=== PATIENT | female | born 1965 | race African-American/Black ===

== ENCOUNTER 2017-02-16 12:19 | Inpatient (IN) | payer MEDICAID ==
[~2017-02-16] VITALS: Ht 160 cm; Wt 41.3 kg
[2017-02-16] MEDS ORDERED: Tubing IV Cassette IV ONE (13:26)
[2017-02-16 14:11] LABS: TROPONIN I < 0.30 ng/mL (<=0.30)
[2017-02-16 14:14] LABS: ALANINE AMINOTRANSFERASE 6 U/L (3-33); ALBUMIN/GLOBULIN RATIO 1.5 (1.0-2.7); ANION GAP 16 (5-15); ASPARTATE AMINO TRANSFERASE 13 U/L (5-40); CALCIUM 10.1 mg/dL (8.6-10.2); CARBON DIOXIDE 21 mEQ/L (20-30); CHLORIDE 101 mEQ/L (98-107); CREATININE 0.7 mg/dL (0.5-0.9); GLOMERULAR FILTRATION RATE > 60 mL/min (>60); HEMOLYSIS 0; POTASSIUM 3.5 mEQ/L (3.4-4.9); SODIUM 138 mEQ/L (135-145); TOTAL PROTEIN 7.1 g/dL (6.6-8.7)
--- NOTE | 2017-02-16 14:17 | Diagnostic Imaging Report ---
Indication: Chest pain, fatigue for 3 days Technique: Single portable AP view of the chest. Findings: Comparison: None. Thoracic spine demonstrates mild S-shaped scoliosis. The extra pulmonary soft tissues, cardiomediastinal silhouette, pulmonary vasculature and parenchyma, and pleural surfaces are unremarkable. IMPRESSION: Scoliosis Otherwise negative portable AP chest .
[2017-02-16 14:24] LABS: CKMB < 1.5 ng/mL (< 3.8)
[2017-02-16 14:30] VITALS: BP 129/89
[2017-02-16 14:38] LABS: INR 0.9 (0.9-1.1); PROTHROMBIN TIME 9.7 SEC (9.30-11.50)
[2017-02-16 14:46] LABS: MEAN CORPUSCULAR HEMOGLOBIN 18.7 PG (27.0-31.0); MEAN CORPUSCULAR HGB CONC 27.3 G/DL (32.0-36.0); MEAN CORPUSCULAR VOLUME 68 FL (80-99); MEAN PLATELET VOLUME 7.6 FL (6.5-10.1); PLATELET COUNT 207 K/UL (150-450); RED BLOOD COUNT 2.21 M/UL (4.20-5.40); RED CELL DISTRIBUTION WIDTH 18.8 % (11.6-14.8); WHITE BLOOD COUNT 4.4 K/UL (4.8-10.8)
[2017-02-16 14:51] LABS: ANISOCYTOSIS 3+; BAND NEUTROPHILS % (MANUAL) 0 % (0-8); BASOPHILS % (MANUAL) 0 % (0-2); EOSINOPHILS % (MANUAL) 0 % (0-3); HYPOCHROMASIA 4+; LYMPHOCYTES % (MANUAL) 29 % (20-45); MICROCYTES 3+; NEUTROPHILS % (MANUAL) 65 % (45-75); PLATELET ESTIMATE ADEQUATE; PLATELET MORPHOLOGY NORMAL; POIKILOCYTOSIS 2+; POLYCHROMASIA 2+; TOTAL CELLS COUNTED 100
--- NOTE | 2017-02-16 17:06 | Emergency Room Report ---
History of Present Illness General Chief Complaint: Generalized Weakness Source: EMS Present Illness HPI 51-year-old female presents to ED complaining of weakness and dizziness. Patient picked up a restaurant. States she's been feeling weak the last few days. Denies any fevers or chills. Denies chest pain or shortness of breath. Denies nausea or vomiting. Patient notes history of heavy periods, often requiring transfusion. No other aggravating or relieving factors. Denies any other associated symptoms Allergies: Coded Allergies: No Known Allergies (Unverified , 02/16/17) Patient History Past Medical History: none Past Surgical History: none Pertinent Family History: none Social History: Denies: alcohol use, drug use, smoking Now: No Immunizations: UTD Reviewed Nursing Documentation: PMH: Agreed, PSxH: Agreed Review of Systems All Other Systems: negative except mentioned in HPI Physical Exam Vital Signs Date Time Temp Pulse Resp B/P Pulse Ox O2 Delivery O2 Flow Rate FiO2 02/16/17 12:06 98.6 106 18 146/95 99 Room Air 02/16/17 14:30 2.0 Sp02 EP Interpretation: reviewed, normal General Appearance: no apparent distress, alert, GCS 15, non-toxic Head: normocephalic, atraumatic Eyes: bilateral eye PERRL, bilateral eye normal inspection ENT: hearing grossly normal, normal pharynx, no angioedema, normal voice Neck: full range of motion, supple/symm/no masses Respiratory: chest non-tender, lungs clear, normal breath sounds, speaking full sentences Cardiovascular #1: regular rate, rhythm, no edema Cardiovascular #2: 2+ carotid (R), 2+ carotid (L), 2+ radial (R), 2+ radial (L) , 2+ dorsalis pedis (R), 2+ dorsalis pedis (L) Gastrointestinal: normal bowel sounds, non tender, soft, non-distended, no guarding, no rebound Rectal: deferred Genitourinary: no CVA tenderness Musculoskeletal: back normal, gait/station normal, normal range of motion, non- tender Neurologic: alert, oriented x3, responsive, motor strength/tone normal, sensory intact, speech normal Psychiatric: judgement/insight normal, memory normal, mood/affect normal, no suicidal/homicidal ideation Reflexes: 3+ bicep (R), 3+ bicep (L), 3+ tricep (R), 3+ tricep (L), 3+ knee (R) , 3+ knee (L) Skin: normal color, no rash, warm/dry, well hydrated Lymphatic: no adenopathy Procedures Critical Care Time Critical Care Time i. I feel this is a highly complex case requiring extensive working including EKG/Rhythm strip, Xray/CT/US, Blood/urine lab work, repeat exams while in ED, and administration of strong opiates/narcotics for pain control, admission to hospital or close patient follow up. Total time: 30 min bedside evaluation and treatment excludes procedures (EKG). Reason for critical care: vaginal bleeding, anemia Possible complications: hypotension, hypertension, NE, shock, arrhythmias, metabolic acidosis, end organ damage, respiratory failure. Interventions: labs, IVFs, EKG. PRBCs. US Course: Patient presents with weakness. History of vaginal bleeding. Hemoglobin 4.1. Vital stable. PRBCs transfused. PHOTOGRAPHY PROFESSOR consulted Consultations: nursing staff, EMS, family Performed by: Dr Ocasio Tolerated well condition = serious j. because of unstable vital signs this patient had a condition that could potentially threaten life or limb. I feel this is a critical patient who required my full attention while patient was considered critical. Total Critical Care Time excluding procedures was greater than 35 minutes Medical Decision Making Diagnostic Impression: Primary Impression: Anemia Qualified Codes: D64.9 - Anemia, unspecified Additional Impression: Vaginal bleeding ER Course Hospital Course 51-year-old F presents to ED with weakness. h/o vaginal bleeding Differential diagnosis includes- anemia, dehydration, sepsis Clinical course Patient placed on stretcher. After initial history and physical I ordered labs , IV fluids, EKG Labs - no leukocytosis, Hb 4.1, electrolytes ok, trop negative EKG - NSr, no acute changes interpreted by me PRBCs ordered. OBGYN Dr Polanco consulted - requested pelvic US. Case discused with Dr Pierre and he agreed to admit the patient to his service for further care and support I feel this is a highly complex case requiring extensive working including EKG/ Rhythm strip, Xray/CT/US, Blood/urine lab work, repeat exams while in ED, and administration of strong opiates/narcotics for pain control, admission to hospital or close patient follow up. Diagnosis - anemia, vaginal bleeding Admitted to [facility] in serious condition Labs Test 02/16/17 13:00 02/16/17 13:15 02/16/17 14:30 Prothrombin Time 9.7 SEC (9.30-11.50) Prothromb Time International Ratio 0.9 (0.9-1.1) Activated Partial Thromboplast Time 22 SEC (23-33) Sodium Level 138 mEQ/L (135-145) Potassium Level 3.5 mEQ/L (3.4-4.9) Chloride Level 101 mEQ/L (98-107) Carbon Dioxide Level 21 mEQ/L (20-30) Anion Gap 16 (5-15) Blood Urea Nitrogen 10 mg/dL (7-23) Creatinine 0.7 mg/dL (0.5-0.9) Estimat Glomerular Filtration Rate > 60 mL/min (>60) Glucose Level 104 mg/dL (74-106) Lactic Acid Level 1.10 mmol/L (0.66-2.22) Calcium Level 10.1 mg/dL (8.6-10.2) Total Bilirubin 0.2 mg/dL (0.0-1.2) Aspartate Amino Transf (AST/SGOT) 13 U/L (5-40) Alanine Aminotransferase (ALT/SGPT) 6 U/L (3-33) Alkaline Phosphatase 47 U/L (35-104) Total Creatine Kinase 27 U/L (26-140) Creatine Kinase MB < 1.5 ng/mL (< 3.8) Creatine Kinase MB Relative Index Troponin I < 0.30 ng/mL (<=0.30) Total Protein 7.1 g/dL (6.6-8.7) Albumin 4.3 g/dL (3.5-5.2) Globulin 2.8 g/dL Albumin/Globulin Ratio 1.5 (1.0-2.7) White Blood Count 4.4 K/UL (4.8-10.8) Red Blood Count 2.21 M/UL (4.20-5.40) Hemoglobin 4.1 G/DL (12.0-16.0) Hematocrit 15.1 % (37.0-47.0) Mean Corpuscular Volume 68 FL (80-99) Mean Corpuscular Hemoglobin 18.7 PG (27.0-31.0) Mean Corpuscular Hemoglobin Concent 27.3 G/DL (32.0-36.0) Red Cell Distribution Width 18.8 % (11.6-14.8) Platelet Count 207 K/UL (150-450) Mean Platelet Volume 7.6 FL (6.5-10.1) Neutrophils (%) (Auto) % (45.0-75.0) Lymphocytes (%) (Auto) % (20.0-45.0) Monocytes (%) (Auto) % (1.0-10.0) Eosinophils (%) (Auto) % (0.0-3.0) Basophils (%) (Auto) % (0.0-2.0) Differential Total Cells Counted 100 Neutrophils % (Manual) 65 % (45-75) Lymphocytes % (Manual) 29 % (20-45) Monocytes % (Manual) 6 % (1-10) Eosinophils % (Manual) 0 % (0-3) Basophils % (Manual) 0 % (0-2) Band Neutrophils 0 % (0-8) Platelet Estimate Adequate Platelet Morphology Normal Polychromasia 2+ Hypochromasia 4+ Poikilocytosis 2+ Anisocytosis 3+ Microcytosis 3+ EKG Diagnostic Results Rate: normal Rhythm: NSR ST Segments: no acute changes ASA given to the pt in ED: No Rhythm Strip Diag. Results EP Interpretation: yes Rhythm: NSR, no PVC's, no ectopy Last Vital Signs Date Time Temp Pulse Resp B/P Pulse Ox O2 Delivery O2 Flow Rate FiO2 02/16/17 16:00 98.4 96 16 02/16/17 14:30 129/89 100 Nasal Cannula 2.0 Status: improved Disposition: ADMITTED INPATIENT Condition: Serious Referrals: [facility] (PCP) CORINNA OCASIO M.D. Feb 16, 2017 17:06
[2017-02-16] MEDS ORDERED: iron (17:17)
[2017-02-16] MEDS ORDERED: FOLIC ACID1 MG ORAL (17:17)
[2017-02-16] MEDS ORDERED: VITAMIN B-650 MG PO (17:17)
[2017-02-16 18:15] VITALS: BP 145/81
[2017-02-16 20:00] VITALS: BP 137/80
--- NOTE | 2017-02-16 22:54 | Consultation ---
Consult Note Consult Note Hematology Consult REQ : Gabby RFC: Anemia eval DOS: 02/17/17 ID 51-year-old female presents to ED complaining of weakness and dizziness. Patient was picked up a restaurant. States she's been feeling weak the last few days. Denies any fevers or chills. Denies chest pain or shortness of breath. Denies nausea or vomiting. Patient notes history of heavy periods, often requiring transfusion. No other aggravating or relieving factors. Denies any other associated symptoms, hgb was 4.3 on admission and was transfused with blood Allergies: No Known Allergies (Unverified , 02/16/17) Past Medical History: none Past Surgical History: none Pertinent Family History: none Social History: Denies: alcohol use, drug use, smoking Now: No Immunizations: UTD Reviewed Nursing Documentation: PMH: Agreed, PSxH: Agreed ROS All Other Systems: negative except mentioned in HPI PE: Vitals: stable, are wnl General Appearance: A+O x3, NAD Skin: no rashes, itching HEENT: normocephalic, atraumatic Respiratory/Chest: chest wall non-tender, lungs clear Cardiovascular/Chest: normal peripheral pulses, normal rate Abdomen: normal bowel sounds, non tender Ext: no cce Labs Test 02/16/17 13:00 02/16/17 13:15 02/16/17 14:30 Prothrombin Time 9.7 SEC (9.30-11.50) Prothromb Time International Ratio 0.9 (0.9-1.1) Activated Partial Thromboplast Time 22 SEC (23-33) Sodium Level 138 mEQ/L (135-145) Potassium Level 3.5 mEQ/L (3.4-4.9) Chloride Level 101 mEQ/L (98-107) Carbon Dioxide Level 21 mEQ/L (20-30) Anion Gap 16 (5-15) Blood Urea Nitrogen 10 mg/dL (7-23) Creatinine 0.7 mg/dL (0.5-0.9) Estimat Glomerular Filtration Rate > 60 mL/min (>60) Glucose Level 104 mg/dL (74-106) Lactic Acid Level 1.10 mmol/L (0.66-2.22) Calcium Level 10.1 mg/dL (8.6-10.2) Total Bilirubin 0.2 mg/dL (0.0-1.2) Aspartate Amino Transf (AST/SGOT) 13 U/L (5-40) Alanine Aminotransferase (ALT/SGPT) 6 U/L (3-33) Alkaline Phosphatase 47 U/L (35-104) Total Creatine Kinase 27 U/L (26-140) Creatine Kinase MB < 1.5 ng/mL (< 3.8) Creatine Kinase MB Relative Index Troponin I < 0.30 ng/mL (<=0.30) Total Protein 7.1 g/dL (6.6-8.7) Albumin 4.3 g/dL (3.5-5.2) Globulin 2.8 g/dL Albumin/Globulin Ratio 1.5 (1.0-2.7) White Blood Count 4.4 K/UL (4.8-10.8) Red Blood Count 2.21 M/UL (4.20-5.40) Hemoglobin 4.1 G/DL (12.0-16.0) Hematocrit 15.1 % (37.0-47.0) Mean Corpuscular Volume 68 FL (80-99) Mean Corpuscular Hemoglobin 18.7 PG (27.0-31.0) Mean Corpuscular Hemoglobin Concent 27.3 G/DL (32.0-36.0) Red Cell Distribution Width 18.8 % (11.6-14.8) Platelet Count 207 K/UL (150-450) Mean Platelet Volume 7.6 FL (6.5-10.1) Neutrophils (%) (Auto) % (45.0-75.0) Lymphocytes (%) (Auto) % (20.0-45.0) Monocytes (%) (Auto) % (1.0-10.0) Eosinophils (%) (Auto) % (0.0-3.0) Basophils (%) (Auto) % (0.0-2.0) Differential Total Cells Counted 100 Neutrophils % (Manual) 65 % (45-75) Lymphocytes % (Manual) 29 % (20-45) Monocytes % (Manual) 6 % (1-10) Eosinophils % (Manual) 0 % (0-3) Basophils % (Manual) 0 % (0-2) Band Neutrophils 0 % (0-8) Platelet Estimate Adequate Platelet Morphology Normal Polychromasia 2+ Hypochromasia 4+ Poikilocytosis 2+ Anisocytosis 3+ Microcytosis 3+ Assessment/Recs: # Anemia of vaginal bleeding - with iron deficiency anemia thus recommend iron treatment as an outpatient, vit C # Anemia of iron deficiency # Leukopenia likely related to reactive process v infection, now improved # Coagulopathy # Microcytosis # Weakness Jed Rosen Feb 16, 2017 22:54
[2017-02-17] VITALS: BP 113/67
[2017-02-17 04:00] VITALS: BP 115/80
[2017-02-17 07:57] VITALS: BP 128/74
--- NOTE | 2017-02-17 09:01 | Diagnostic Imaging Report ---
Indication: Heavy vaginal bleeding and anemia Technique: Transabdominal and transvaginal images Comparison: None Findings: Uterus is retroflexed, measures 14 cm length by 7.9 cm AP. Endometrium measures 8 mm thick. There is a 5 cm intramural fibroid in the anterior fundus, as well as other smaller fibroids. There are small cervical nabothian cysts. Left ovary measures 3 cm in length. Right ovary measures 2 cm in length. A small amount of free cul-de-sac fluid. Impression: Fibroid uterus 8 mm thick endometrium. Small amount of free cul-de-sac fluid, most likely physiologic Incidental finding small cervical nabothian cysts
[2017-02-17 09:59] LABS: THYROID STIMULATING HORMONE 2.01 uIU/mL (0.300-4.500)
[2017-02-17 11:17] LABS: BASOPHILS % (AUTO) 0.6 % (0.0-2.0); EOSINOPHILS % (AUTO) 0.6 % (0.0-3.0); LYMPHOCYTES % (AUTO) 21.4 % (20.0-45.0); MEAN CORPUSCULAR HEMOGLOBIN 25.8 PG (27.0-31.0); MEAN CORPUSCULAR VOLUME 81 FL (80-99); MEAN PLATELET VOLUME 8.9 FL (6.5-10.1); MONOCYTES % (AUTO) 5.9 % (1.0-10.0); NEUTROPHILS % (AUTO) 71.6 % (45.0-75.0); PLATELET COUNT 163 K/UL (150-450); RED BLOOD COUNT 4.49 M/UL (4.20-5.40); RED CELL DISTRIBUTION WIDTH 18.6 % (11.6-14.8); WHITE BLOOD COUNT 5.2 K/UL (4.8-10.8)
[2017-02-17 11:34] LABS: PATH BLOOD SMEAR/OMC SENT TO PATHOLOGIST
[2017-02-17 11:46] VITALS: BP 141/81
[2017-02-17 15:55] VITALS: BP 135/94
[2017-02-17] MEDS ORDERED: Tubing Blood Filter IV ONE (17:35)
[2017-02-17] MEDS ORDERED: NS 275ml ONE (17:35)
--- NOTE | 2017-02-18 04:45 | History and Physical Report ---
DATE OF ADMISSION: 02/16/2017 HISTORY OF PRESENT ILLNESS: The patient came in for severe anemia, most likely due to her vaginal bleeding. She has multiple fibroids found on the ultrasound. This is a chronic problem for her. ER doctor spoke with Dr. Ryne Polanco and he told the ER doctor, Dr. Ocasio that he will see the patient for consult as well. The patient is complaining of weakness. I saw the patient in person and within less than 24 hours of the time of admission. I explained to her that we can discharge if she was very eager and anxious to be discharged, but I said that it has to be cleared by associate application developer. The patient was receiving transfusion. PAST MEDICAL HISTORY: Significant for fibroids, vaginal bleed, and iron-deficiency anemia. PAST SURGICAL HISTORY: None. ALLERGIES: No known allergies. MEDICATIONS: Iron tablets . FAMILY HISTORY: Noncontributory. SOCIAL HISTORY: Denies history of smoking, alcohol, or illicit drugs. REVIEW OF SYSTEMS: HEENT: Denies headaches. Respiratory: Denies shortness of breath. Denies cough. Cardiovascular: Denies chest pain. Gastrointestinal: Denies nausea, vomiting, or diarrhea. She had vaginal bleeding profusely. Central Nervous System: Complains of fatigue and weakness. PHYSICAL EXAMINATION: GENERAL: Stable. VITAL SIGNS: Stable. HEENT: PERRLA. NECK: Supple. No lymphadenopathy. CHEST: Clear to auscultation. GASTROINTESTINAL: Soft, nontender, and nondistended. No organomegaly. EXTREMITIES: No edema. Moves all four extremities. NEUROLOGIC: Sensation is intact to light touch. LABORATORY DATA: Labs are significant for . ASSESSMENT: Severe anemia due to fibroids and vaginal bleeding. PLAN: I have asked Dr. Ryne Polanco as well as Dr. Rosen, Dr. Hlot to see the patient for consultation. Ezequiel Pierre M.D. DR: ROBERT JOB#: [id number] CC:
--- NOTE | 2017-02-18 12:00 | Discharge Summary ---
Discharge Summary Hospital Course Date of Admission Feb 16, 2017 at 15:41 Date of Discharge Feb 17, 2017 at 17:36 Admitting Diagnosis anemia/weakness/vaginal bleeding JIMMIE Rosa Logan is a 51 year old female who was admitted on Feb 16, 2017 at 15 :41 for Anemia,Weakness,Vaginal Bleeding Hospital Course [id number] Discharge Discharge Disposition Patient was discharged to Home (01) Discharge Diagnoses: Sindi Eaton NP Feb 18, 2017 12:00
[2017-02-19 09:11] LABS: OTHERS PATHOLGIST COMMENT
--- NOTE | 2017-02-19 09:30 | Discharge Summary 2 SIG ---
DATE OF ADMISSION: 02/16/2017 DATE OF DISCHARGE: 02/17/2017 ROLL FORMING MACHINE SET UP MECHANIC: Jed Rosen M.D. BRIEF HOSPITAL COURSE: The patient is a 51-year-old female who presented to the ED complaining of generalized weakness and dizziness. The patient has history of heavy menstrual periods often requiring transfusion. On evaluation at ED, hemoglobin was 4.1. EKG showed normal sinus rhythm. Transvaginal ultrasound showed fibroid uterus. The patient was admitted to [facility] and was followed up by absorption plant operator. The patient was given four units packed RBC blood transfusion. she also presented with iron deficiency anemia and was recommended iron supplements and vitamins C. Hemoglobin level improved post blood transfusion and the patient was discharged home to follow up with Gynecology as an outpatient. FINAL DIAGNOSES: 1. Severe anemia due to vaginal bleed secondary to uterine fibroids. 2. Acute anemia requiring blood transfusion. 3. Iron deficiency anemia. 4. Leukopenia likely related to active process improved. Ezequiel Pierre M.D. I have been assigned to dictate discharge summary on this account and I was not involved in the patient's management. Sindi Eaton N.P. DR: RAMONA JOB#: [id number] CC: JEFF
--- NOTE | 2017-02-19 13:23 | Cardiology Report ---
APPROVED REPORT EKG Measurement Heart [id number] Normal sinus rhythm Cannot rule out Anterior infarct, age undetermined Abnormal ECG
[2017-02-19 15:44] LABS: CA 125 135.6 U/mL (0.0-38.1); HEMOGLOBIN A 97.9 % (94.0-98.0); HEMOGLOBIN A2 2.1 % (0.7-3.1); TRANSFERRIN SOLUBLE RECEPTOR 77.2 nmol/L (12.2-27.3)
== END 2017-02-17 17:36 | disposition home or self-care (01) | DRG 663 ==
LOC: EDBD 12:19 → EMR 12:57 → EDBEDREQ 14:43 → 2W 15:41 → EDBEDREQSVC 15:47 → EDBEDREQ 15:47
PROC: 30233N1 Transfusion of Nonautologous Red Blood Cells into Peripheral Vein, Percutaneous Approach (ICD-10-PCS; principal; 2017-02-16)
DX: D62 Acute posthemorrhagic anemia (principal); D25.9 Leiomyoma of uterus, unspecified; N93.9 Abnormal uterine and vaginal bleeding, unspecified
CPT/HCPCS: 36415; 71010; 76830; 76856; 80053; 82378; 82550; 82553; 82607; 82728; 82746; 82962; 83010; 83020; 83540; 83550; 83605; 83615; 84238; 84443; 84484; 85007; 85025; 85044; 85060; 85384; 85610; 85730; 86304; 86850; 86900; 86901; 86920; 87040; 93005